=== PATIENT | female | born 1970 | race Caucasian/White ===

== ENCOUNTER 2022-12-13 18:53 | Observation (INO) | payer OTHER, SELFPAY ==
[2022-12-13] VITALS (7 sets, daily range): BP systolic 123–156; BP diastolic 54–104; PULSE 43–74; RESP 14–20; TEMP 36.5–36.7; O2SAT 97–100; BMI 42.9; BMI 44.0
--- NOTE | 2022-12-13 18:51 | ECG_ITS ---
APPROVED REPORT Exam: Resting ECG HR:62 bpm ECG Measurements Heart Rate 62 AXES [place] 127 P 49 QRSd 109 QRS 44 QT 370 T 30 QTc 375 Conclusion SINUS RHYTHM NORMAL ECG UNCONFIRMED REPORT Electronically signed by : Antonio Mason MD 12/14/2022 01:37:14
--- NOTE | 2022-12-13 18:57 | XR_ITS ---
PROCEDURE INFORMATION: Exam: XR Chest Exam date and time: 12/13/2022 6:59 PM Age: 52 years old Clinical indication: Sternal or substernal pain; Patient HX: Chest pain, shortness of breath. Smoker. ; Additional info: Cp TECHNIQUE: Imaging protocol: Radiologic exam of the chest. Views: 2 views. COMPARISON: No relevant prior studies available. FINDINGS: Lungs: Lungs are clear. No consolidation or pulmonary edema. Pleural spaces: No pleural effusion. No pneumothorax. Heart/Mediastinum: Cardiomediastinal silhouette is normal. Bones/joints: No acute abnormality. IMPRESSION: No acute findings.
[2022-12-13 19:24] LABS: Chloride 105 mmol/L (98-107); Potassium 4.1 mmoL/L (3.5-5.1); Sodium 137 mmol/L (136-145)
[2022-12-13 19:25] LABS: Basophils # 0.2 K/mm3 (0-0.2); Basophils % 2.2 % (0.1-2.0); Eosinophils # 0.3 K/mm3 (0.0-0.4); Eosinophils % 3.6 % (0.1-12.0); Hematocrit 47.7 % (37.0-47.0); Hemoglobin 15.9 g/dL (12.2-16.2); Lymphocytes # 3.2 K/mm3 (0.7-4.5); Lymphocytes % 36.2 % (10-50); Mean Corpuscular HGB Conc 33.3 g/dL (31.8-35.4); Mean Corpuscular Hemoglobin 30.1 pg (27.0-31.2); Mean Corpuscular Volume 90.5 fl (81-99); Mean Platelet Volume 9.8 fl (7.4-10.4); Monocytes # 0.4 K/mm3 (0.1-1.0); Monocytes % 4.5 % (1.7-9.3); Neutrophils # 4.7 K/mm3 (1.8-7.8); Neutrophils % 53.4 % (37.0-80.0); Platelet Count 192 K/mm3 (142-424); Red Blood Count 5.26 M/mm3 (4.20-5.40); White Blood Count 8.9 K/mm3 (4.8-10.8)
[2022-12-13 19:27] LABS: Anion Gap 8.1 mEq/L (5-15); Blood Urea Nitrogen 14 mg/dl (7-17); Carbon Dioxide 28 mmol/L (22.0-30.0); Creatinine Clearance Estimated 72 mL/min (50-200); Estimated Glomerular Filt Rate 76 ml/min (>60); GFR (African American) 92 ML/MIN (>60); Glucose 94 mg/dl (74-100)
[2022-12-13 19:40] LABS: Troponin I < 0.01 ng/ml (0.00-0.034)
--- NOTE | 2022-12-13 20:40 | PC.NURSE ---
in room speaking with patient at this time.
--- NOTE | 2022-12-13 20:44 | HMH.EDCP ---
Discharge Plan Disposition Chief Complaint: Chest Pain Discharge ED Provider: Joni (ED)Raj Chest Pain HPI General Chief Complaint: Chest Pain Stated Complaint: CHEST PAIN Time Seen by Provider: 12/13/22 20:44 Mode of Arrival: Ambulatory Source of Information: Patient and Medical Record Limitations: No Limitations Description of Symptoms (Recalled from ER Triage Doc. by RN): pt c/o lt sternal cp that radiates up lt neck that started a week ago . pt states currently pain is 4/10 History of Present Illness HPI narrative: pt with ongoing progressive chest pain over the last week - both at rest and with exertion - no known ht dis MD complaint: chest pain indicative of cardiac Onset (ago): day(s) Duration: intermittent Activity at onset: during rest and during exertion Pain location: substernal Severity: moderate Quality: heaviness Pain radiation: LUE and neck Associated symptoms: nausea Risk Factors for CAD: Family Hx of CAD and Smoking Treatments prior to or on arrival for Cardiac Chest Pain: none LIBRA Score for Non-Stemi Age of Patient: 50-59 years old Heart Rate: 50-69 bpm Systolic Blood Pressure: 160-199 mmHg Serum Creatinine: 0.80-1.19 mg/dl CHF Killip Class: I-No CHF Other Risk Factors: None Non-Stemi Risk Score: 61 Risk Stratification: 1-108 = Low Risk Related Data On Oral Contraceptives: No Allergies Allergy/AdvReac Type Severity Reaction Status Date / Time No Known Allergies Allergy Verified 12/13/22 18:57 [facility] Disclaimer: The information contained in this section may have been updated after the patient was seen, as this information can be updated by other users. Social History Smoking Status: Current every day smoker alcohol intake: never current occupational status: employed Travel in the last 8 weeks: None ROS Obtained: Yes All systems reviewed & no additional complaints except as documented Physical Exam General General appearance: alert and obese Head Head exam: normocephalic Eye Eye exam: Present PERRL and EOMI ENT ENT exam: Present mucous membranes moist Neck Neck exam: Present trachea midline Respiratory Respiratory exam: Present normal lung sounds bilaterally; Absent respiratory distress Cardiovascular Cardiovascular exam: Present regular rate and systolic murmur Abdominal Exam Abdominal exam: Present soft Extremities Exam Extremities exam: Present full ROM; Absent calf tenderness Neurological Exam Neurological exam: Present alert, oriented X3 and CN II-XII intact; Absent motor sensory deficit Psychiatric Psychiatric exam: Present normal affect Skin Skin exam: Absent rash Medical Decision Making Medical Records Medical records reviewed: Yes I reviewed the patient's medical records. [place] Inquiry Pt receiving controlled substance: No Vital Signs: 12/13/22 18:54 Temperature 98.0 F Temperature Source Oral Pulse Rate [Right] 68 Respiratory Rate 16 Blood Pressure [Right Arm] 156/104 H Blood Pressure Mean [Right Arm] 121 02 Sat by Pulse Oximetry 98 Lab Data Lab results reviewed: Yes I reviewed the patient's lab results. Lab Results 12/13/22 18:55: WBC 8.9, RBC 5.26, Hgb 15.9, Hct 47.7 H, MCV 90.5, MCH 30.1, MCHC 33.3, RDW 13.0, Plt Count 192, MPV 9.8, Neut % (Auto) 53.4, Lymph % (Auto) 36.2, [place] % (Auto) 4.5, Eos % (Auto) 3.6, Baso % (Auto) 2.2 H, Neut # (Auto) 4.7, Lymph # (Auto) 3.2, [place] # (Auto) 0.4, Eos # (Auto) 0.3, Baso # (Auto) 0.2 12/13/22 18:55: Sodium 137, Potassium 4.1, Chloride 105, Carbon Dioxide 28, Anion Gap 8.1, BUN 14, Creatinine 0.80, Estimated Creat Clear 72, Estimated GFR 76, Est GFR ( Amer) 92, Glucose 94, Calcium 9.0, Troponin I < 0.01 Result diagrams: 12/13/22 18:55 12/13/22 18:55 Orders (Tests/Meds): ED MEDICATIONS Generic Name Dose Route Start Last Admin Trade Name Freq PRN Reason Stop Dose Admin Sodium Chloride 1,000 mls @ 999 mls/hr 12/13/22 21:00 12/13/22 20:52 Sod
[2022-12-13 20:59] LABS: Coronavirus 19, PCR Not Detected (NotDetected); Influenza A, PCR Not Detected (NotDetected); Influenza B, PCR Not Detected (NotDetected)
[2022-12-13 21:03] LABS: Microscopic, Urine URINE MICROSCOPIC (MICROSCOPIC)
--- NOTE | 2022-12-13 21:07 | PC.NURSE ---
Pt assigned to room 210 at this time. Admissions notified of admit.
[2022-12-13 21:17] LABS: Appearance,Urine CLEAR (Clear); Bilirubin,Urine Negative (Negative); Blood, Urine 2+ (Negative); Color,Urine YELLOW (Yellow); Glucose,Urine (UA) Negative (Negative); Ketones,Urine Negative (Negative); Leukocyte Esterase,Urine Negative (Negative); Nitrate,Urine Negative (Negative); Protein,Urine 2+ (Negative); Specific Gravity, Urine 1.015 (1.005-1.030); Urobilinogen,Urine 0.2 EU/dl (0.2)
--- NOTE | 2022-12-13 21:27 | PC.NURSE ---
Rounded on patient, no needs voiced at this time.
[2022-12-13 21:31] LABS: WBC,Urine Occasional #/hpf (0-3)
--- NOTE | 2022-12-13 22:26 | PC.NURSE ---
PT ARRIVED TO FLOOR AT THIS TIME
--- NOTE | 2022-12-13 22:50 | PC.NURSE ---
bed scale not working weight on admission per patient
--- NOTE | 2022-12-13 23:05 | EXP.HP ---
History of Present Illness *Admission Date: 12/13/22 *Reason for visit:: Chest Pain *History of present illness: Ms. Sher is a 52-year-old female with a past medical history of Tobacco Use. She presents to [facility] due to a 1-week history of left sternal chest pain with radiation up the neck associated with nausea and shortness of air. She reports that activity worsens the chest pain, resting helps to relieve it. She reports a family history of heart disease on her mother's side. She denies any follow-up with PCP's. She is currently on no prescription medications. In the ER the patient had a EKG that showed NSR with no ST segment elevation or depression. Troponin was <0.01. Cxray showed no acute cardiopulmonary findings and CBC and CMP were unremarkable. The patient was admitted with initial impression: Chest Pain. She will be monitored on telemetry and Cardiology will be consulted for the am. The plan of care was discussed with the patient on admission. She verbalized understanding and agreement with the plan of care. [facility] Disclaimer: The information contained in this section may have been updated after the patient was seen, as this information can be updated by other users. Medical History Deficient knowledge of caesarean delivery Tobacco use Surgical History (Updated 12/13/22 @ 23:12 by Gregory Anaya DNP) History of cholecystectomy Social History Smoking Status: Current every day smoker alcohol intake: never current occupational status: employed Travel in the last 8 weeks: None Review of Systems Review of Systems Review of systems:: pertinent systems reviewed and negative unless documented below Constitutional Constitutional: Reports system reviewed and no additional complaints, except as documented Eyes Eyes: Reports system reviewed and no additional complaints, except as documented ENT Ears, Nose, Mouth, and Throat: Reports system reviewed and no additional complaints, except as documented *Cardiovascular Cardiovascular: Reports chest pain, Reports chest pain with activity, Reports dyspnea and Reports radiating jaw, neck or arm pain *Respiratory Respiratory: Reports dyspnea *Genitourinary Genitourinary: Reports system reviewed and no additional complaints, except as documented *Musculoskeletal Musculoskeletal: Reports system reviewed and no additional complaints, except as documented Integumentary/Breasts Skin/Breast: Reports system reviewed and no additional complaints, except as documented *Neurologic Neurologic: Reports system reviewed and no additional complaints, except as documented Psychiatric Psychiatric: Reports system reviewed and no additional complaints, except as documented Endocrine Endocrine: Reports system reviewed and no additional complaints, except as documented Hematologic/Lymphatic Hematologic/Lymphatic: Reports system reviewed and no additional complaints, except as documented Allergic/Immunologic Allergic/Immunologic: Reports system reviewed and no additional complaints, except as documented Meds Home Medications and Allergies Home Medications Medication Instructions Recorded Confirmed Type atorvastatin 40 mg tablet 40 mg PO HS 30 days #30 tabs 12/14/22 Rx irbesartan 75 mg tablet 75 mg PO DAILY 30 days #30 tabs 12/14/22 Rx New Prescriptions to Start Prescriptions: Liam Ward irbesartan Liam Bautista Allergies Allergy/AdvReac Type Severity Reaction Status Date / Time No Known Allergies Allergy Verified 12/13/22 18:57 Exam Data for Last 24 hours Vital signs and Labs for Last 24 Hours: Temp Pulse Resp BP Pulse Ox 97.7 F 43 L 20 135/77 100 12/13/22 22:48 12/13/22 22:48 12/13/22 22:48 12/13/22 22:48 12/13/22 22:56 Laboratory Results - last 24 hr 12/13/22 18:55: WBC 8.9, RBC 5.26, Hgb 15
[2022-12-13 23:20] LABS: Troponin I < 0.01 ng/ml (0.00-0.034)
[2022-12-14] VITALS (14 sets, daily range): BP systolic 113–162; BP diastolic 67–90; PULSE 38–50; RESP 18–20; TEMP 36.5–36.7; O2SAT 93–100; BMI 44.0
[2022-12-14 00:23] LABS: D-Dimer 0.84 ug/mL (0.0-0.5)
--- NOTE | 2022-12-14 01:00 | CT_ITS ---
PROCEDURE INFORMATION: Exam: CTA Chest With Contrast Exam date and time: 12/14/2022 2:33 AM Age: 52 years old Clinical indication: Abnormal findings; Abnormal diagnostic tests; Elevated d-dimer; Additional info: Chest pain, elevated d-dimer TECHNIQUE: Imaging protocol: Computed tomographic angiography of the chest with contrast. 3D rendering (Not supervised by radiologist): MIP and/or 3D reconstructed images were created by the technologist. Radiation optimization: All CT scans at this facility use at least one of these dose optimization techniques: automated exposure control; mA and/or kV adjustment per patient size (includes targeted exams where dose is matched to clinical indication); or iterative reconstruction. Contrast material: ISOVUE; Contrast volume: 70 ml; Contrast route: INTRAVENOUS (IV); REPORTING DATA: Count of CT and Cardiac NM exams in prior 12 months: This patient has received 0 known CTs and 0 known cardiac nuclear medicine studies in the 12 months prior to the current study. COMPARISON: CR XR CHEST 2V 12/13/2022 6:59 PM FINDINGS: Pulmonary arteries: Normal. No pulmonary emboli. Aorta: Unremarkable. No aortic aneurysm. No aortic dissection. Lungs: Unremarkable. No consolidation. No masses. Pleural spaces: Pleural based 8 mm nodule seen in the right lower lobe. Heart: No coronary calcification is noted. . No cardiomegaly. No pericardial effusion. Lymph nodes: Unremarkable. No enlarged lymph nodes. Gallbladder and bile ducts: Prior cholecystectomy. Bones/joints: Unremarkable. No acute fracture. Soft tissues: Unremarkable. IMPRESSION: 1. No evidence of pulmonary embolus or other acute process. 2. Pleural based 8 mm left lower lobe nodule. For patients at low risk (minimal or absent history of smoking and of other known risk factors), recommend CT Chest at 6-12 months, then consider CT Chest at 18-24 months. For patients at high risk (history of smoking or of other known risk factors), recommend CT Chest at 6-12 months, then CT Chest at 18-24 months. (Reference: Carmen) REFERENCES: Carmen Friend et al. Guidelines for Management of Incidental Pulmonary Nodules Detected on CT Images: From the Fleischner Society 2017. Radiology. 2017;284(1):228-243.
[2022-12-14 01:33] LABS: Troponin I < 0.01 ng/ml (0.00-0.034)
[2022-12-14 01:34] LABS: Urine Pregnancy, HCG Qual. Negative (Negative)
--- NOTE | 2022-12-14 04:06 | PC.NURSE ---
Pt. came to the hospital after stating she has had chest pain for almost a week. She is aox4 and walks w/o any assistance. She is NPO this morning for Cardiology consult.
--- NOTE | 2022-12-14 06:00 | CA_ITS ---
APPROVED REPORT EXAM: Comprehensive 2D, Doppler, and color-flow Echocardiogram Garland Maker: Virginia Antonio CRT Ht: 5 ft 4 in Wt: 258lbs BSA: 2.18 BP: 156/104 mmHg Indications: Chest Pain, Shortness of Breath, Obesity, smoker 2D Dimensions LVOT 2.06 cm (M/F) 1.5-2.5 LA Volume 28.30 mL LA Volume Index 12.70 mL/m2 (M/F) 16-34 M-Mode Dimensions RVDd 3.98 cm (0.9-2.6) LA Diam 4.24 cm (1.9-4.0) LVDd 4.79 cm (3.5-5.7) Ao Diam 3.07 cm (2.0-3.7) LVDs 2.98 cm (3.5-5.7) IVSd 0.97 cm (0.6-1.1) PWd 0.89 cm (0.6-1.1) EF (Teich) 67.90% FS 37.80% EDV (Teich) 107.00 mL ESV (Teich) 34.40 mL LV Diastology MED E' 4.20 (< 7 cm/sec) MED A' 7.30 cm/s LAT E' 8.90 (<10 cm/sec) LAT A' 7.70 cm/s Aortic Valve AI PHT 610.00 ms AO Peak GR. 7.30 mmHg Pulmonary Valve PV Peak Velocity 131.00 (50-150 cm/s) Tricuspid Valve TR P. Velocity 291.00 cm/s RAP Estimate 10.00 mmHg RVSP 44.00 mmHg Left Ventricle Left atrium is mildly enlarged, left ventricle is normal size, estimated ejection fraction 55% with no regional wall motion abnormality, diastolic parameters are inconclusive. Right atrium and right ventricular mildly enlarged with normal contractility. Aortic Valve Aortic valve is minimally thickened and fibrosed there is no aortic stenosis or significant aortic insufficiency. Mitral Valve Mitral valve is grossly normal, there is trace mitral regurgitation. Tricuspid Valve Tricuspid valve grossly normal, there is trace tricuspid regurgitation, tricuspid regurgitation jet velocity is inadequate for calculation of the right ventricular systolic pressure. Pulmonic Valve Pulmonic valve is poorly visualized. Great Vessels Aortic root is normal size. Inferior vena cava is normal size with normal inspiratory collapse. Pericardium No significant pericardial effusion noted. Conclusion 1. Mild biatrial enlargement, normal left ventricular size, estimated ejection fraction 55% with no regional wall motion abnormality, diastolic parameters are inconclusive. 2. Mildly enlarged right ventricle with normal contractility. 3. Trace mitral and tricuspid regurgitation. 4. No significant pericardial effusion noted. 5. Inferior vena cava is normal size with normal inspiratory collapse. Electronically signed by : Luis Ornelas MD 12/14/2022 20:55:18
[2022-12-14 07:40] LABS: Cholesterol 217 mg/dl (140-200); HDL Cholesterol 36 mg/dl (40-60); Triglycerides 162 mg/dl (30-150); VLDL Cholesterol 32 mg/dL (0-40)
--- NOTE | 2022-12-14 08:01 | HMH.PHAINT1 ---
Pharmacy Intervention Comments: Reconciled patient's home medications using patient interview and pharmacy fill history.
--- NOTE | 2022-12-14 08:53 | EXP.CARD.CON ---
History of Present Illness History of Present Illness Consult date: 12/14/22 Requesting physician: Liam Bautista Consult reason: chest pain Chief complaint: unstable angina History of present illness: 52-year-old white female with past medical history of 1 pack/day smoker 20+ years and obesity presented to emergency department last night with complaints of mid sternal to left sided chest pain x1 week, pressure in nature, exacerbated with activity better with rest for 1 week. Patient denies associated shortness of breath, dizziness, nausea or vomiting. Reports blood pressure has also been elevated this past week. Upon presentation to ER initial EKG was normal sinus rhythm with a rate of 62 negative for acute ischemic changes. Serial troponins are negative. Labs as follow: WBC 8.9,D-dimer 0.84, sodium 137, potassium 4.1, and creatinine 0.8. Chest x-ray was negative for acute process. CTA was performed due to elevated D-dimer and was negative for PE. Patient reports she did get relief with nitro. Patient was admitted for unstable angina and evaluation by cardiology. A preliminary echo shows an estimated EF greater than 60%. LDL noted at 132. [facility] Disclaimer: The information contained in this section may have been updated after the patient was seen, as this information can be updated by other users. Medical History Deficient knowledge of caesarean delivery Tobacco use Surgical History (Updated 12/13/22 @ 23:12 by Gregory Anaya DNP) History of cholecystectomy Social History Smoking Status: Current every day smoker alcohol intake: never current occupational status: employed Travel in the last 8 weeks: None Review of Systems *Cardiovascular Cardiovascular: Reports chest pain with activity and Reports dyspnea *Respiratory Respiratory: Reports dyspnea *Neurologic Neurologic: Reports system reviewed and no additional complaints, except as documented Exam Data for Last 24 hours Vital signs and Labs for Last 24 Hours: Temp Pulse Resp BP Pulse Ox 97.9 F 41 L 18 162/74 H 97 12/14/22 08:00 12/14/22 08:00 12/14/22 08:00 12/14/22 08:00 12/14/22 08:00 Laboratory Results - last 24 hr 12/13/22 18:55: WBC 8.9, RBC 5.26, Hgb 15.9, Hct 47.7 H, MCV 90.5, MCH 30.1, MCHC 33.3, RDW 13.0, Plt Count 192, MPV 9.8, Neut % (Auto) 53.4, Lymph % (Auto) 36.2, [place] % (Auto) 4.5, Eos % (Auto) 3.6, Baso % (Auto) 2.2 H, Neut # (Auto) 4.7, Lymph # (Auto) 3.2, [place] # (Auto) 0.4, Eos # (Auto) 0.3, Baso # (Auto) 0.2 12/13/22 18:55: Sodium 137, Potassium 4.1, Chloride 105, Carbon Dioxide 28, Anion Gap 8.1, BUN 14, Creatinine 0.80, Estimated Creat Clear 72, Estimated GFR 76, Est GFR ( Amer) 92, Glucose 94, Calcium 9.0, Troponin I < 0.01 12/13/22 20:53: Urine Color Yellow, Urine Appearance Clear, Urine pH 7.0, Ur Specific [place] 1.015, Urine Protein 2+, Urine Glucose (UA) Negative, Urine Ketones Negative, Urine Blood 2+, Urine Nitrate Negative, Urine Bilirubin Negative, Urine Urobilinogen 0.2, Ur Leukocyte Esterase Negative, Urine RBC None, Urine WBC Occasional, Ur Squamous Epith Cells None, Urine Bacteria None 12/13/22 20:53: Urine HCG, Qual Negative 12/13/22 20:54: SARS-CoV-2 (PCR) Not detected, Influenza A Untype (PCR) Not detected, Influenza Type B (PCR) Not detected 12/13/22 22:35: Troponin I < 0.01 12/13/22 23:30: D-Dimer 0.84 H 12/14/22 01:00: Troponin I < 0.01 12/14/22 07:13: Triglycerides 162 H, Cholesterol 217 H, LDL Cholesterol Direct 132.60 H, VLDL Cholesterol 32, HDL Cholesterol 36 L, Cholesterol/HDL Ratio 6.0 H I & O for Last 24 hours: Intake & Output 12/11/22 12/12/22 12/13/22 12/14/22 23:59 23:59 23:59 23:59 Output Total 0 / 0 Balance 0 / 0 Weight 258 lb 258 lb 0.006 oz Constitutional Constitutional: no acute distress *Routine Respiratory Exam Respiratory: Present CTA bilaterally and symmetric chest movement *Routine Cardiovascular Exam Card
--- NOTE | 2022-12-14 09:13 | IR_ITS ---
APPROVED REPORT Patient Location: Inpatient Hydroponics Worker: KAREN Crawley RT (R) PROCEDURES Left heart catheterization Left ventriculogram Selective coronary angiogram INDICATION Unstable angina Informed consent was obtained prior to the procedure. COMPLICATIONS None Estimated Blood Loss: Less than 10 mls TECHNIQUE One percent lidocaine used to anesthetize the right anterior aspect of the wrist. The right radial artery was accessed via the Seldinger technique. A 6 Monegasque sheath was placed in the right radial artery. 150 mg magnesium sulfate, 800 mcg of nitroglycerin, 1mg Lidocaine and 5000 U Heparin were given through the arterial sheath. The papa catheter was also used to perform left heart catheterization, left ventriculogram and selective coronary angiogram. At the end of the procedure the sheath was removed good hemostasis was achieved using Traclet band, patient was transferred to the postop holding area in stable condition. ANGIOGRAPHIC RESULTS The left main artery Normal The left anterior descending artery EDGAR II flow but otherwise angiographically normal The circumflex artery EDGAR II flow otherwise angiographically normal The right coronary artery Dominant with EDGAR II flow otherwise angiographically normal The WALKER ventriculogram reveals Normal 65% The left ventricular end-diastolic pressure 20 mmHg IMPRESSION Slow flow down all coronary arteries consistent with endothelial dysfunction likely secondary to tobacco usage No angiographic evidence of macro vascular disease Normal ejection fraction Elevated LVEDP PLAN 1. Avoidance of tobacco products 2. Treatment of endothelial dysfunction Electronically signed by : Jeffrey Manuel MD 12/14/2022 13:32:40
--- NOTE | 2022-12-14 15:04 | EXP.DC.SUM ---
General Admission date:: 12/13/22 Discharge date: 12/14/22 HPI HPI HPI: Ms. Sher is a 52-year-old female with a past medical history of Tobacco Use. She presents to [facility] due to a 1-week history of left sternal chest pain with radiation up the neck associated with nausea and shortness of air. She reports that activity worsens the chest pain, resting helps to relieve it. She reports a family history of heart disease on her mother's side. She denies any follow-up with PCP's. She is currently on no prescription medications. In the ER the patient had a EKG that showed NSR with no ST segment elevation or depression. Troponin was <0.01. Cxray showed no acute cardiopulmonary findings and CBC and CMP were unremarkable. The patient was admitted with initial impression: Chest Pain. She will be monitored on telemetry and Cardiology will be consulted for the am. The plan of care was discussed with the patient on admission. She verbalized understanding and agreement with the plan of care. Hospital Course Hospital Course Hospital Course: 52-year-old female with history of obesity and tobacco use. Presented with chest pain. Concerning for unstable angina. Admitted for serial troponins and cardiology consult. Problems addressed as follows: Unstable angina Hypertension Hyperlipidemia Serial troponins negative. No ST changes on EKG. Normal sinus rhythm. Negative for ischemic changes. CTA chest was negative for PE. Cardiology consulted, appreciate their recommendations. Patient taken for left heart cath due to strong clinical suspicion. Findings of no flow-limiting lesions. Concern for endothelial dysfunction. Recommend continuing with ARB and statin. Coreg held at discharge because of patient's heart rate in the 40s. Additionally recommend starting 81 mg aspirin. Blood pressure elevated during admission. Treat with ARB at this time. Close follow-up with cardiology in the next 2 weeks for further adjustment to medication and reevaluation. Would benefit from further work-up for noncardiac etiologies of chest pain at this time. Tobacco use: Smoking cessation strongly advised Left heart cath results: IMPRESSION Slow flow down all coronary arteries consistent with endothelial dysfunction likely secondary to tobacco usage No angiographic evidence of macro vascular disease Normal ejection fraction Elevated LVEDP PLAN 1. Avoidance of tobacco products 2. Treatment of endothelial dysfunction holding Coreg due to leanna cardia irbesartan 75mg daily Lipitor 40 mg p.o. daily Exam Data for Last 24 hours Vital signs and Labs for Last 24 Hours: Temp Pulse Resp BP Pulse Ox 98.1 F 45 L 18 153/90 H 97 12/14/22 11:14 12/14/22 11:14 12/14/22 11:14 12/14/22 11:14 12/14/22 11:14 Laboratory Results - last 24 hr 12/13/22 18:55: WBC 8.9, RBC 5.26, Hgb 15.9, Hct 47.7 H, MCV 90.5, MCH 30.1, MCHC 33.3, RDW 13.0, Plt Count 192, MPV 9.8, Neut % (Auto) 53.4, Lymph % (Auto) 36.2, [place] % (Auto) 4.5, Eos % (Auto) 3.6, Baso % (Auto) 2.2 H, Neut # (Auto) 4.7, Lymph # (Auto) 3.2, [place] # (Auto) 0.4, Eos # (Auto) 0.3, Baso # (Auto) 0.2 12/13/22 18:55: Sodium 137, Potassium 4.1, Chloride 105, Carbon Dioxide 28, Anion Gap 8.1, BUN 14, Creatinine 0.80, Estimated Creat Clear 72, Estimated GFR 76, Est GFR ( Amer) 92, Glucose 94, Calcium 9.0, Troponin I < 0.01 12/13/22 20:53: Urine Color Yellow, Urine Appearance Clear, Urine pH 7.0, Ur Specific [place] 1.015, Urine Protein 2+, Urine Glucose (UA) Negative, Urine Ketones Negative, Urine Blood 2+, Urine Nitrate Negative, Urine Bilirubin Negative, Urine Urobilinogen 0.2, Ur Leukocyte Esterase Negative, Urine RBC None, Urine WBC Occasional, Ur Squamous Epith Cells None, Urine Bacteria None 12/13/22 20:53: Urine HCG, Qual Negative 12/13/22 20:54: SARS-CoV-2 (PCR) Not detected, Influenza A Untype (PCR) Not detected, Influenza Type B (PCR) Not detected 12/13/22 22:35: Troponin
--- NOTE | 2022-12-16 14:18 | CARE MANAGER ---
Attempted to contact patient x2. Left VM message. OSIRIS Caputo
== END 2022-12-14 18:46 | disposition home or self-care (01) ==
LOC: ER 20:38 → 2ND 22:17
PROVIDERS: Emergency Medicine; Internal Medicine; Nurse Practitioner Family; Admitting Provider Internal Medicine Adolescent Medicine; Emergency Provider Emergency Medicine; Visit Provider Internal Medicine Adolescent Medicine
DX: I25.110 Atherosclerotic heart disease of native coronary artery with unstable angina pectoris (principal); F17.210 Nicotine dependence, cigarettes, uncomplicated; I10 Essential (primary) hypertension; E66.01 Morbid (severe) obesity due to excess calories; Z68.41 Body mass index [BMI] 40.0-44.9, adult; E78.5 Hyperlipidemia, unspecified; Z79.899 Other long term (current) drug therapy
CPT/HCPCS: 36415; 71046; 71275; 80048; 80061; 81001; 81025; 84484; 85025; 85378; 93005; 93306; 93458; 99152; 99285; C1725; C1769; C9803; G0378; J1644; Q9967; U0003; U0005

== ENCOUNTER → 2023-01-17 13:23 | Outpatient (CLI) | payer OTHER, SELFPAY ==
[2023-01-17 14:44] LABS: Chloride 95 mmol/L (98-107); Potassium 4.1 mmoL/L (3.5-5.1); Sodium 136 mmol/L (136-145)
[2023-01-17 14:47] LABS: Anion Gap 14.1 mEq/L (5-15); Blood Urea Nitrogen 14 mg/dl (7-17); Calcium 9.2 mg/dl (8.4-10.2); Carbon Dioxide 31 mmol/L (22.0-30.0); Estimated Glomerular Filt Rate 58 ml/min (>60); GFR (African American) 71 ML/MIN (>60); Glucose 101 mg/dl (74-100)
== END ==
PROVIDERS: Visit Provider Physician Assistant
DX: I25.10 Atherosclerotic heart disease of native coronary artery without angina pectoris (principal); I10 Essential (primary) hypertension; E78.5 Hyperlipidemia, unspecified; E66.9 Obesity, unspecified; Z68.42 Body mass index [BMI] 45.0-49.9, adult; Z72.0 Tobacco use
CPT/HCPCS: 36415; 80048

== ENCOUNTER → 2023-02-16 10:04 | Outpatient (CLI) | payer OTHER, SELFPAY ==
[2023-02-16 10:08] LABS: Microscopic, Urine URINE MICROSCOPIC (MICROSCOPIC)
[2023-02-16 10:56] LABS: Appearance,Urine CLEAR (Clear); Bilirubin,Urine Negative (Negative); Blood, Urine 1+ (Negative); Color,Urine YELLOW (Yellow); Glucose,Urine (UA) Negative (Negative); Ketones,Urine Negative (Negative); Leukocyte Esterase,Urine Negative (Negative); Nitrate,Urine Negative (Negative); PH,Urine 7.5 (5.0-8.5); Protein,Urine 2+ (Negative); Specific Gravity, Urine 1.025 (1.005-1.030)
[2023-02-16 11:11] LABS: Bacteria,Urine Trace /lpf
[2023-02-16 11:16] LABS: Anion Gap 14.4 mEq/L (5-15); Blood Urea Nitrogen 15 mg/dl (7-17); Calcium 9.3 mg/dl (8.4-10.2); Carbon Dioxide 27 mmol/L (22.0-30.0); Chloride 102 mmol/L (98-107); Estimated Glomerular Filt Rate 66 ml/min (>60); GFR (African American) 80 ML/MIN (>60); Glucose 87 mg/dl (74-100); Potassium 4.4 mmoL/L (3.5-5.1); Sodium 139 mmol/L (136-145)
== END ==
PROVIDERS: Visit Provider Nurse Practitioner Family
DX: I10 Essential (primary) hypertension (principal); R39.89 Other symptoms and signs involving the genitourinary system
CPT/HCPCS: 36415; 80048; 81001